=== PATIENT | female | born 1950 | race Caucasian/White ===

== ENCOUNTER → 2017-03-03 | Outpatient (CLI) | payer MEDICARE, MEDICAID ==
[~2017-03-03] MED LIST: ACET-1757 PO; ACET650S12 PR; ALPR0.25 PO; BACL-19 PO; CHLO25CA9 PO; DOCU100C8 PO; ENOX40SY4 SQ; FOLI-17 PO; HYDR-3138 PO; LISI-167 PO; LORA-446 PO; MAGN400T26 PO; METH-356 PO; METH40TA3 PO; METO25TA35 PO; MULT-6 PO; NICO1PAT5 TD; ONDA-39 PO; THIA100T10 PO; TRAM50TA2 PO
[2017-03-03 15:58] LABS: BLOOD UREA NITROGEN 12 mg/dL (7-18)
[2017-03-03 16:11] LABS: ASPARTATE AMINO TRANSFERASE 20 U/L (15-37); C-REACTIVE PROTEIN, QUANT 0.17 mg/dL (0.02-0.49)
== END | disposition home or self-care (01) ==
LOC: LAB 14:24
PROVIDERS: ATTEND Family Medicine
DX: F41.9 Anxiety disorder, unspecified (principal); M46.86 Other specified inflammatory spondylopathies, lumbar region; M13.869 Other specified arthritis, unspecified knee; M46.82 Other specified inflammatory spondylopathies, cervical region; M13.859 Other specified arthritis, unspecified hip
CPT/HCPCS: 36415; 80053; 84443; 84550; 85025; 85651; 86038; 86140; 86225; 86430